=== PATIENT | male | born 1985 | race Two or more races ===

== ENCOUNTER 2025-01-10 14:54 | Outpatient (RCR) | payer MEDICAID, SELFPAY ==
--- NOTE | 2025-01-10 15:23 | PT.OIERPT ---
PT OP Initial Eval Patient Information Outpatient Physical Therapy Treatment Date: 01/10/25 Visit Reasons: Low back pain Medical Diagnosis: [id number] Treatment Dx #1: Mid Back Pain Treatment Dx #2: Abnormal Posture Start of Care: 01/10/25 Date of Onset: 1 year ago Smoking Status Smoking Status: Never smoker Initial Assessment Subjective: Pt is a 39 y/o male reports of chronic mid back pain (03/01). No imaging has been done thus far in the mid back. Pt has limitation with sitting, lifting, chores, putting on his shoes, cook, clean, and performing recreational activities. Objective: T/S AROM: all motions are WFL with end range pain into all plane BUE AROM: all motions are WNL BUE MMTs: grossly 3+/5 Scapula MMTs: grossly 3+/5 Posture: left trunk side bend, scapula elevation R>L Assessment: Pt demonstrate mid back pain and abnormal posture consistent with possible scoliosis curvature leading to difficulty with ADLs. Pt will attempt physical therapy if pain persist Pt will be refer back to provider for further consultation. Short Term and [facility] Goals 1) Increase spinal mobility WNL in 6 wks to be able to perform self care activities 2) Decrease pain to 2/10 in 6 wks to be able to sit and stand more than 30 mins 3) Increase thoracic core WNL in 6 wks to be able to perform recreational activities 4) Increase scapula MMTs grossly to 4-/5 in 6 wks to be able to perform lifting activities 5) Indep with HEP Treatment Plan 1) Manual Therapy 2) Therapeutic Activities 3) Therapeutic Exercises 4) Modalities (ice, heat) Frequency and Duration: 2 x wk for 6 wks Certification Dates: 01/10/25 to 04/12/25 Procedure Charges OP PT Eval Mod Complex 30 minutes: Yes
== END 2025-01-20 23:59 | disposition home or self-care (01) ==
LOC: CPTX 14:54
PROVIDERS: PCP Family Medicine; Referring Provider Family Medicine; Visit Provider Family Medicine
DX: M54.6 Pain in thoracic spine (principal); R29.3 Abnormal posture; G89.29 Other chronic pain
CPT/HCPCS: 97162

== ENCOUNTER 2025-02-01 15:00 | Outpatient (RCR) | payer MEDICAID, SELFPAY ==
--- NOTE | 2025-01-22 14:58 | PT.ODAYNRPT ---
PT Outpatient Daily Note OP Daily Note Outpatient Physical Therapy Treatment Date: 01/22/25 Visit Reasons: LOW BACK PAIN Subjective: Pt's back is the same. No change in overall pain. Objective: Please see flow chart for list of ther ex performed Assessment: tolerate exercises with minimal pain Plan: Continue with PT Length of Time (minutes) of Treatment: 30 Minutes Procedure Charges Therapeutic Exercise 30 minutes: Yes
--- NOTE | 2025-01-25 15:41 | PT.ODAYNRPT ---
PT Outpatient Daily Note OP Daily Note Outpatient Physical Therapy Treatment Date: 01/25/25 Visit Reasons: LOW BACK PAIN Subjective: Pt's back is okay. No new concerns to report Objective: Please see flow chart for list of ther ex performed Assessment: tolerate exercises with minimal pain Plan: Continue with PT Length of Time (minutes) of Treatment: 30 Minutes Procedure Charges Therapeutic Exercise 30 minutes: Yes
--- NOTE | 2025-01-30 16:01 | PT.ODAYNRPT ---
PT Outpatient Daily Note OP Daily Note Outpatient Physical Therapy Treatment Date: 01/30/25 Visit Reasons: LOW BACK PAIN Subjective: Pt's mid back is better. Pt will like to complete 2 more sessions and return back to MD. Pt will like to start physical therapy for his lower back and legs. Objective: Please see flow chart for list of ther ex perfomed Assessment: progress all exercises to sitting and stand position with good tolerance. Plan: Continue with PT Length of Time (minutes) of Treatment: 30 Minutes Procedure Charges Therapeutic Exercise 30 minutes: Yes
--- NOTE | 2025-02-01 15:33 | PT.ODAYNRPT ---
PT Outpatient Daily Note OP Daily Note Outpatient Physical Therapy Treatment Date: 02/01/25 Visit Reasons: LOW BACK PAIN Subjective: Pt's mid back is much better. Pt does not have any new concerns Objective: Please see flow chart for list of ther ex performed Assessment: tolerate exercises with minimal pain Plan: Continue with PT Length of Time (minutes) of Treatment: 30 Minutes Procedure Charges Therapeutic Exercise 30 minutes: Yes
--- NOTE | 2025-03-16 08:42 | PT.ODS1RPT ---
PT OP Progress/Discharge Note Date of Service: 03/16/25 Progress Note/DC Note Progress Note/Discharge Note: DC Note Patient Information Visit Reasons: LOW BACK PAIN Service Discharge Date: 03/16/25 Status Assessment: Pt has been seen for 5 visits (eval + 4 visits). Pt last treated on 02/01/25 and has not returned to therapy. Pt has been contact regarding follow up appts without success. At this time Pt will be d/c from care due to non-compliance per attendance policy. Pt did not meet set goals in therapy; thank you for your referrals.
== END 2025-02-19 23:59 | disposition home or self-care (01) ==
LOC: CPTX 15:00
PROVIDERS: PCP Family Medicine; Referring Provider Family Medicine; Visit Provider Family Medicine
DX: M54.6 Pain in thoracic spine (principal); R29.3 Abnormal posture; G89.29 Other chronic pain; S29.012D Strain of muscle and tendon of back wall of thorax, subsequent encounter; X58.XXXD Exposure to other specified factors, subsequent encounter
CPT/HCPCS: 97110